=== PATIENT | male | born 1965 | race African-American/Black ===

== ENCOUNTER 2023-05-06 08:54 | Emergency (ER) | payer MEDICAID, MEDICARE, OTHER ==
[~2023-05-06] VITALS: Ht 182.9 cm; Wt 113.0 kg
[2023-05-06 09:06] VITALS: O2SAT 98
[2023-05-06] MEDS ORDERED: AMOX1TAB16 MT (10:03)
[2023-05-06] MEDS ORDERED: IBUP-2030 MT (10:17)
[2023-05-06] MEDS: KETOROLAC 30MG/ML VIAL IM ONE (11:01)
[2023-05-06 11:06] VITALS: BP 181/96; PULSE 91; RESP 18; TEMP 98.1
== END 2023-05-06 11:14 | disposition home or self-care (01) ==
LOC: ER 08:54
DX: L03.113 Cellulitis of right upper limb (principal); I10 Essential (primary) hypertension
CPT/HCPCS: 99283; 96372; J1885